=== PATIENT | female | born 1985 | race Caucasian/White ===

== ENCOUNTER 2018-03-31 11:55 | Emergency (ER) | payer MEDICAID ==
[~2018-03-31] VITALS: Ht 160 cm; Wt 59.6 kg
[~2018-03-31 11:55] MED LIST: OXYC-302 PO; PREN1TAB27 PO
[2018-03-31] MEDS ORDERED: DIAZEPAM 5 MG TABLET PO ONE (12:30)
[2018-03-31] MEDS ORDERED: SODIUM CHLORIDE FLUSH 10ML SYR IVF ONE (12:30)
[2018-03-31] MEDS ORDERED: DIAZEPAM 5 MG TABLET ONE (12:44)
[2018-03-31 13:11] LABS: BASOPHILS # (AUTO) 0.02 x10^3/uL (0-0.1); BASOPHILS % (AUTO) 0 % (0-1); EOSINOPHILS # (AUTO) 0.05 x10^3/uL (0-0.4); EOSINOPHILS % (AUTO) 1 % (1-7); LYMPHOCYTES # (AUTO) 1.49 x10^3/uL (1-3.4); LYMPHOCYTES % (AUTO) 32 % (22-44); MD NO; MEAN CORPUSCULAR HEMOGLOBIN 29.6 pg (27.0-34.8); MEAN CORPUSCULAR HGB CONC 33.1 g/dL (32.4-35.8); MEAN CORPUSCULAR VOLUME 89.3 fL (80-100); MEAN PLATELET VOLUME 7.5 fL (7.4-10.4); MONOCYTES # (AUTO) 0.26 x10^3/uL (0.2-0.8); MONOCYTES % (AUTO) 6 % (2-9); NEUTROPHILS # (AUTO) 2.82 x10^3/uL (1.8-6.8); NEUTROPHILS % (AUTO) 61 % (42-75); PLATELET COUNT 321 x10^3/uL (130-400); RED BLOOD COUNT 3.92 x10^6/uL (3.82-5.3); RED CELL DISTRIBUTION WIDTH 14.2 % (9.6-15.2)
[2018-03-31 13:21] LABS: ANION GAP 6 mmol/L (5-15); CALCIUM 8.7 mg/dL (8.5-10.1); CHLORIDE 111 mmol/L (98-107)
[2018-03-31 13:25] LABS: ALANINE AMINOTRANSFERASE 21 U/L (12-78); ALKALINE PHOSPHATASE 33 U/L (45-117); BILIRUBIN,TOTAL 0.3 mg/dL (0.2-1.0); CREATINE KINASE, TOTAL 110 U/L (26-192); CREATININE 0.77 mg/dL (0.55-1.02); TOTAL PROTEIN 7.3 g/dL (6.4-8.2)
[2018-03-31] MEDS ORDERED: GADOBUTROL 7.5 MMOL/7.5 ML PFS ONE (13:44)
[2018-03-31 14:46] VITALS: BP 95/60
== END 2018-03-31 14:48 | disposition home or self-care (01) ==
LOC: ED 14:14
DX: M54.16 Radiculopathy, lumbar region (principal); M54.12 Radiculopathy, cervical region
CPT/HCPCS: 36415; 70553; 72141; 80053; 82550; 83735; 85025; 85651; 99285; A9585

== ENCOUNTER 2018-04-29 16:55 | Emergency (ER) | payer MEDICAID ==
[~2018-04-29] VITALS: Ht 160 cm; Wt 57.0 kg
[2018-04-29 17:34] LABS: BASOPHILS # (AUTO) 0.01 x10^3/uL (0-0.1); BASOPHILS % (AUTO) 0 % (0-1); EOSINOPHILS # (AUTO) 0.04 x10^3/uL (0-0.4); EOSINOPHILS % (AUTO) 1 % (1-7); LYMPHOCYTES # (AUTO) 0.71 x10^3/uL (1-3.4); LYMPHOCYTES % (AUTO) 17 % (22-44); MD NO; MEAN CORPUSCULAR HEMOGLOBIN 30.4 pg (27.0-34.8); MEAN CORPUSCULAR HGB CONC 33.6 g/dL (32.4-35.8); MEAN CORPUSCULAR VOLUME 90.5 fL (80-100); MEAN PLATELET VOLUME 7.5 fL (7.4-10.4); MONOCYTES # (AUTO) 0.23 x10^3/uL (0.2-0.8); MONOCYTES % (AUTO) 5 % (2-9); NEUTROPHILS # (AUTO) 3.21 x10^3/uL (1.8-6.8); NEUTROPHILS % (AUTO) 77 % (42-75); PLATELET COUNT 305 x10^3/uL (130-400); RED BLOOD COUNT 4.17 x10^6/uL (3.82-5.3); RED CELL DISTRIBUTION WIDTH 14.3 % (9.6-15.2)
[2018-04-29 17:44] LABS: ALANINE AMINOTRANSFERASE 18 U/L (12-78); ALBUMIN 4.2 g/dL (3.4-5.0); ANION GAP 9 mmol/L (5-15); CALCIUM 8.3 mg/dL (8.5-10.1); CHLORIDE 109 mmol/L (98-107); CREATININE 0.87 mg/dL (0.55-1.02)
[2018-04-29 17:49] LABS: ALKALINE PHOSPHATASE 44 U/L (45-117); BILIRUBIN,TOTAL 0.5 mg/dL (0.2-1.0); TOTAL PROTEIN 7.9 g/dL (6.4-8.2)
[2018-04-29 17:56] LABS: CULTURE INDICATED? NO; MICROSCOPIC NOT IND
[2018-04-29 18:06] VITALS: BP 107/73
== END 2018-04-29 18:46 | disposition home or self-care (01) ==
LOC: ED 18:35
DX: M54.5 Low back pain (principal); Z87.891 Personal history of nicotine dependence
CPT/HCPCS: 36415; 80053; 81003; 84703; 85025; 99284

== ENCOUNTER 2021-01-06 01:31 | Emergency (ER) | payer MEDICAID ==
[~2021-01-06] VITALS: Ht 160 cm; Wt 63.7 kg
[~2021-01-06 01:31] MED LIST changes: -OXYC-302 PO; +OXYC1TAB14 PO
[2021-01-06] MEDS ORDERED: OXYcodone/APAP 5/325MG TABLET ONE (01:54)
[2021-01-06] MEDS ORDERED: OXYcodone/APAP 5/325MG TABLET PO ONE (02:00)
--- NOTE | 2021-01-06 02:15 | NUR ---
Pt states chipped tooth right side of mouth one week ago, pain worse on side of mouth.
--- NOTE | 2021-01-06 02:49 | NUR ---
Patient given discharge instructions and they have confirmed that they understand the instructions. Patient ambulatory with steady gait. No questions at time of discharge.
[2021-01-06 02:51] VITALS: BP 101/69
== END 2021-01-06 02:51 | disposition home or self-care (01) ==
LOC: ED 02:49
DX: K02.9 Dental caries, unspecified (principal); K08.89 Other specified disorders of teeth and supporting structures
CPT/HCPCS: 99283

== ENCOUNTER 2021-01-14 23:45 | Emergency (ER) | payer MEDICAID ==
[~2021-01-14] VITALS: Ht 160 cm; Wt 61.9 kg
--- NOTE | 2021-01-14 23:58 | NUR ---
PT PRESENTS TO ED WITH RIGHT SIDED TOOTH AND JAW PAIN. PT STATES HER TOOTH IS FALLING OUT, SHE WAS HERE A WEEK AGO AND GIVEN ANTIBIOTICS WITHOUT ANY RELEIF. PT SAYS THE PAIN IS NOW GOING UP TO HER EAR AND DOWN TO HER JAW. PT HOOKED TO MONITORS AND RESTING ON GURNEY.
--- NOTE | 2021-01-15 00:15 | NUR ---
ERP AT BEDSIDE TO NUMB TOOTH
[2021-01-15] MEDS ORDERED: LIDOCAINE-MPF 1%, 2ML ONE (00:18)
[2021-01-15] MEDS ORDERED: BUPIVACAINE 0.25% ONE (00:18)
--- NOTE | 2021-01-15 00:20 | NUR ---
PT TOLERATED PROCEDURE WELL, RESTING ON GURNEY DENIES NEEDS AT THIS TIME.
[2021-01-15] MEDS ORDERED: BUPIVACAINE 0.25% INFIL ONE (00:30)
[2021-01-15] MEDS ORDERED: LIDOCAINE 1%, 2ML INFIL ONE (00:30)
[2021-01-15] MEDS ORDERED: IBUPROFEN 800 MG TABLET ONE (00:45)
--- NOTE | 2021-01-15 00:51 | NUR ---
Patient given discharge instructions and they have confirmed that they understand the instructions. Patient ambulatory with steady gait.
[2021-01-15 00:52] VITALS: BP 102/64
[2021-01-15] MEDS ORDERED: IBUPROFEN 800 MG TABLET PO ONE (01:00)
== END 2021-01-15 00:54 | disposition home or self-care (01) ==
LOC: ED 01-15 00:35
DX: K02.9 Dental caries, unspecified (principal); K08.89 Other specified disorders of teeth and supporting structures; F17.210 Nicotine dependence, cigarettes, uncomplicated; Z72.9 Problem related to lifestyle, unspecified
CPT/HCPCS: 64400; 99284